=== PATIENT | female | born 1985 | race Caucasian/White ===

== ENCOUNTER → 2021-10-14 | Outpatient (CLI) | payer MEDICAID | LOC: MHCPAIN 10:53 | DX: M54.59 Other low back pain (principal); M53.3 Sacrococcygeal disorders, not elsewhere classified; M51.16 Intervertebral disc disorders with radiculopathy, lumbar region; M54.2 Cervicalgia; M25.561 Pain in right knee; M25.562 Pain in left knee | CPT/HCPCS: G0463 ==